=== PATIENT | female | born 1945 | race Caucasian/White ===

== ENCOUNTER 2019-01-12 13:03 | Emergency (ER) | payer MEDICARE, BC ==
[~2019-01-12] VITALS: Ht 154.9 cm; Wt 90.7 kg
[~2019-01-12 13:03] MED LIST: ASPIRIN EC81 MG PO; CALTRATE-600 W1 EAC1 PO; CENTRUM SILVER1 EACH PO; CO Q10200 MG PO; CYCLOBENZAPRINE 10 MG PO; CYMBALTA30 MG PO; ETODOLAC400 MG PO; GLUCOSAMINE CH1 EAC2 PO; I-CAPS AREDS S1 EACH PO; LEVOCETIRIZINE D5 MG PO; LYRICA PO; TROSPIUM PO; VITAMIN B-125000 MCG PO
[2019-01-12 16:22] LABS: ALBUMIN 3.4 g/dL (3.5-5.0); ALBUMIN/GLOBULIN RATIO 1.1 (0.8-2.0); CALCIUM 9.4 mg/dL (8.4-10.2); CREATININE, SERUM 1.06 mg/dL (0.57-1.11)
[2019-01-12 17:08] LABS: CLARITY,URINE CLEAR (CLEAR); COLOR,URINE YELLOW (YELLOW)
[2019-01-12 17:09] LABS: BILIRUBIN,URINE NEGATIVE (NEGATIVE); KETONES,URINE NEGATIVE (NEGATIVE); LEUKOCYTE ESTERASE ,URINE NEGATIVE (NEGATIVE); NITRITE,URINE NEGATIVE (NEGATIVE); PROTEIN,URINE DIPSTICK TRACE (NEGATIVE); URINE UROBILINOGEN 0.2 mg/dL (0.2 - 1)
[2019-01-12 17:21] LABS: WBC,URINE (MAN) 0-5 /HPF (0-5)
[2019-01-12 17:22] LABS: HYALINE CASTS 0-1 (0-1); MUCUS,URINE RARE (RARE)
[2019-01-12 17:36] LABS: BASOPHILS # (AUTO) 0.1 (0.0-0.1); BASOPHILS % 1.1 % (0.0-1.0); EOSINOPHILS # (AUTO) 0.4 (0.0-0.4); EOSINOPHILS % 5.2 % (0.0-6.0); HEMATOCRIT 38.3 % (34.2-44.1); HEMOGLOBIN 12.6 g/dL (12.0-16.0); LYMPHOCYTES # (AUTO) 1.8 (1.0-3.2); LYMPHOCYTES % 24.3 % (18.0-39.1); MEAN CORPUSCULAR HEMOGLOBIN 31.7 pg (28-32); MEAN CORPUSCULAR HGB CONC 32.9 g/dL (31-35); MEAN CORPUSCULAR VOLUME 96.5 fL (81-99); MONOCYTES # (AUTO) 0.7 (0.2-0.8); MONOCYTES % 9.7 % (4.4-11.3); NEUTROPHILS # (AUTO) 4.3 (2.1-6.9); NEUTROPHILS % 59.2 % (38.7-80.0); PLATELET COUNT 339 x10e3/uL (140-360); RED BLOOD COUNT 3.97 x10e6/uL (3.6-5.1); RED CELL DISTRIBUTION WIDTH 16.1 % (11.7-14.4)
[2019-01-12 17:52] LABS: INR 0.8; PROTHROMBIN TIME 11.9 seconds (11.9-14.5)
[2019-01-12 17:53] LABS: PARTIAL THROMBOPLASTIN TIME 26.3 seconds (23.8-35.5)
--- NOTE | 2019-01-12 19:15 | NUR ---
ENDORSED TO VANESSA VELOZ RN BY ROYAL
--- NOTE | 2019-01-12 19:31 | NUR ---
PT DECLINED BP, SHE SAYS IT GOT TOO TIGHT.
== END 2019-01-12 20:00 | disposition home or self-care (01) ==
LOC: ER 13:03
DX: N95.0 Postmenopausal bleeding (principal); E78.5 Hyperlipidemia, unspecified; Z96.652 Presence of left artificial knee joint
CPT/HCPCS: 36415; 80053; 81001; 85025; 85610; 85730; 99283

== ENCOUNTER → 2019-07-30 | Outpatient (CLI) | payer MEDICARE, BC ==
[~2019-07-30] MED LIST changes: +BYSTOLIC10 MG PO; +GLIMEPIRIDE4 MG PO; +LEVOTHYROXINE50 MCG PO; +LYRICA75 MG PO; +METFORMIN HCL500 MG PO; +NIFEDIPINE10 MG PO; +TOVIAZ4 MG PO; +VALACYCLOVIR500 MG PO
[2019-07-30 16:23] LABS: ALBUMIN 2.9 g/dL (3.5-5.0); ALBUMIN/GLOBULIN RATIO 0.7 (0.8-2.0); ANION GAP 16.4 mmol/L (8-16); CALCIUM 9.5 mg/dL (8.4-10.2); CREATININE, SERUM 0.94 mg/dL (0.57-1.11); POTASSIUM 4.4 mmol/L (3.5-5.1)
== END ==
LOC: LAB 15:44
PROVIDERS: ATTEND Internal Medicine
DX: N18.3 Chronic kidney disease, stage 3 (moderate) (principal)
CPT/HCPCS: 36415; 80053

== ENCOUNTER → 2019-08-06 | Outpatient (CLI) | payer MEDICARE, BC ==
[~2019-08-06] MED LIST changes: +ROPIVACAINE 246.25 MG, EPINEPHRINE HCL 1:1000 1ML 0.5 MG, CLONIDINE HCL 0.08 MG, KETORO... INJ ONE
== END ==
LOC: RAD 05:00 → EDSTATUS 08:00
PROVIDERS: ATTEND Specialist
DX: Z01.818 Encounter for other preprocedural examination (principal); M17.11 Unilateral primary osteoarthritis, right knee; Z53.8 Procedure and treatment not carried out for other reasons
CPT/HCPCS: 86850; 86900; 86920; 93005; J0171; J1885; J2795

== ENCOUNTER 2019-12-23 06:33 | Inpatient (IN) | payer MEDICARE, BC ==
[~2019-12-23] VITALS: Ht 154.9 cm; Wt 79.6 kg
[2019-12-23] VITALS (12 sets, daily range): BP systolic 109–177; BP diastolic 44–88
[~2019-12-23 06:33] MED LIST changes: +CO Q-10400 MG PO; +FISH OIL 1,2001 EACH PO; -ROPIVACAINE 246.25 MG, EPINEPHRINE HCL 1:1000 1ML 0.5 MG, CLONIDINE HCL 0.08 MG, KETORO... INJ ONE
[2019-12-23] MEDS ORDERED: INSULIN REGULAR, HUMAN 100 UNIT/1 ML 3ML VIAL ONE (07:36)
[2019-12-23] MEDS ORDERED: ONDANSETRON HCL INJ 2MG/ML 2ML 2 MG/ML VIAL IV PRN (11:15)
[2019-12-23] MEDS ORDERED: ACETAMINOPHEN 1000 MG/100 ML IV PRN (11:15)
[2019-12-23] MEDS: INSULIN REGULAR, HUMAN 100 UNIT/1 ML 3ML VIAL SQ SCH ×2 (12:25→17:18)
[2019-12-23] MEDS ORDERED: LIDOCAINE HCL 2% LOCAL INJ 5 ML SDV VIAL INJ ONE (12:43)
[2019-12-23] MEDS ORDERED: SEVOFLURANE INHAL SOLN 250 ML PEN BTL ONE (12:43)
[2019-12-23] MEDS ORDERED: CEFOXITIN SOD 1 GM VIAL ONE (12:43)
[2019-12-23] MEDS ORDERED: GLYCOPYRROLATE INJ 0.2 MG/ML VIAL ONE (12:43)
[2019-12-23] MEDS ORDERED: NEOSTIGMINE 1 MG/ML 10ML VIAL ONE (12:43)
[2019-12-23] MEDS ORDERED: ONDANSETRON HCL INJ 2MG/ML 2ML 2 MG/ML VIAL ONE (12:43)
[2019-12-23] MEDS ORDERED: DEXAMETHASONE SOD PHOS INJ 4 MG/ML VIAL ONE (12:43)
[2019-12-23] MEDS ORDERED: ROCURONIUM BROMIDE 10 MG/ML 5ML VIAL ONE (12:43)
[2019-12-23] MEDS ORDERED: ACETAMINOPHEN 1000 MG/100 ML IV ONE (12:43)
[2019-12-23] MEDS ORDERED: PROPOFOL IV EMULSION 10 MG/ML 20 ML VIAL ONE (12:43)
[2019-12-23] MEDS: PANTOPRAZOLE 40 MG 10ML VIAL IV SCH (13:10)
[2019-12-23] MEDS: SODIUM CHLORIDE 0.9% 1000ML 1,000 ML IV SCH ×2 (13:10→19:54)
[2019-12-23] MEDS: HYDROMORPHONE 1MG/1ML INJ IV PRN ×2 (13:10→19:54)
[2019-12-23] MEDS ORDERED: FENTANYL CITRATE/PF 100MCG/2 ML INJ ONE (13:12)
[2019-12-23] MEDS ORDERED: MORPHINE SULFATE INJ 10 MG/ML ONE (13:12)
[2019-12-23] MEDS: SODIUM CHLORIDE 0.9% 250ML IRRIG IR SCH ×4 (14:29→23:48)
[2019-12-23] MEDS: CEFOXITIN 1GM/ D5W 50ML 50 ML IV SCH (17:17)
--- NOTE | 2019-12-23 18:20 | NUR ---
Pt with sudden onset nausea and c/o headache. HR 114, B/P 110/87. Called and spoke with Dr Mary Sahu orders received. He has advised to call and notify cardiology. Addendum: 12/23/19 at 1840 by Miguel Akhtar RN Disregard previous note of nausea. Entered on wrong patient by mistake.
--- NOTE | 2019-12-23 18:20 | NUR ---
Pt with decreased urine output x2 hour. Dr Liu notified. Order for one time ns bolus. Will monitor.
--- NOTE | 2019-12-23 18:28 | Operative Report ---
DATE OF PROCEDURE: 12/23/2019 SURGEON: Aleksey Liu MD PREOPERATIVE DIAGNOSES: Carcinoma of the distal transverse colon, cholecystitis, and cholelithiasis. POSTOPERATIVE DIAGNOSES: Carcinoma of the distal transverse colon, cholecystitis, and cholelithiasis. OPERATIONS PERFORMED: Exploratory laparotomy, left colectomy, and cholecystectomy. GLASS FORMING ENGINEER: Tho Liu MD ANESTHESIA: General endotracheal. COMPLICATIONS: None. ESTIMATED BLOOD LOSS: 75 mL. DESCRIPTION OF PROCEDURE: With the patient lying in bed in the supine position, under good general endotracheal anesthesia, and the abdomen was prepped with Betadine solution and draped in the usual manner. An upper midline incision was made, it was carried down through the subcutaneous tissue and through the midline fascia. The midline fascia was very very thin from the patient having a very attenuated rectus sheath. Exploration of the intraabdominal cavity then revealed the presence of a palpable mass in the distal transverse colon. The rest of the abdominal exploration revealed a gallbladder with a contained some large stones in the neck, so we decided to go ahead and also proceed with a cholecystectomy during the procedure. The liver showed some fatty infiltration and some engorgement, likely secondary to the patient's obesity and some of the medications that she takes. At this point, we went ahead and mobilized the left colon off the lateral gutter and the splenic flexure, the colon was then slowly and carefully brought down. Similarly, the hepatic flexure on the right side was brought down and from the hepatocolic ligament. The lesser sac was then entered and the lesser omentum was then divided using the Ultrex device. After this was done, we had good mobilization of the colon to go ahead and proceed with the surgery. The proximal transverse colon was then divided with an application of the DREW-75 stapler and similarly the junction of the descending and sigmoid colon was then divided with an application of DREW-75 stapler. The mesentery of the colon was then slowly and carefully divided with the Ultrex device, with the larger vessels ligated with 0 silk. The specimen was removed without any difficulty and sent for pathological examination. Before doing the anastomosis, we decided to go ahead and proceed with a cholecystectomy. The gallbladder was full of adhesions to the duodenum and this was slowly and carefully taken down. The neck of the gallbladder was then identified in the peritoneum overlying the neck of the gallbladder was opened. The cystic duct was then circumferentially dissected away from the common duct and a 2-0 silk tie was placed around the cystic artery, it was then identified and ligated, but not divided. The gallbladder was then slowly and carefully taken off the liver bed using the cautery scissors and hemostasis was ascertained. At the neck of the gallbladder, the cystic artery that had been previously tied, it was then identified and divided, and then the cystic duct was ligated with the previously placed 2-0 silk tie and also divided, and gallbladder was sent for pathological examination. Hemostasis was then ascertained and we then went ahead and proceeded to do the anastomosis of the colon. The proximal transverse colon was then brought without any tension over to the proximal sigmoid colon. An anastomosis was performed with another application of the DREW-75 stapler. The remaining opening was closed with a TA-60 stapler. Gloves and instruments were then changed. The anastomosis was then reinforced with interrupted sutures of 3-0 silk and the mesenteric rent was closed with a running suture of 2-0 Vicryl. The abdomen was then copiously irrigated. Hemostasis was ascertained. All the excess fluid was aspirated. The abdomen was then closed because the attenuation of the rectus sheath, there was only one layer present and so the midline fascia was closed with a running suture of #1 Vicryl reinforced with interrupted [id number]-hczpw of 0 Ethibond. This gave us a satisfactory closure without any tension. The hemostasis of the subcutaneous tissue was performed and the skin was then closed with clips. A dressing was applied. The sponge, lap, and needle count was correct. The patient tolerated the procedure well and returned to the recovery room in stable condition. MD SHAGUFTA Reddy/JOANN /[id number]
[2019-12-23] MEDS ORDERED: SODIUM CHLORIDE 0.9% 500ML 300 ML IV ONE (18:30)
[2019-12-24] VITALS (24 sets, daily range): BP systolic 121–165; BP diastolic 47–73
[2019-12-24] MEDS: CEFOXITIN 1GM/ D5W 50ML 50 ML IV SCH (00:08)
[2019-12-24] MEDS: INSULIN REGULAR, HUMAN 100 UNIT/1 ML 3ML VIAL SQ SCH ×5 (00:12→23:48)
[2019-12-24] MEDS: SODIUM CHLORIDE 0.9% 250ML IRRIG IR SCH ×6 (04:14→23:47)
[2019-12-24] MEDS: SODIUM CHLORIDE 0.9% 1000ML 1,000 ML IV SCH ×3 (05:01→21:10)
[2019-12-24 05:13] LABS: BASOPHILS % 0.1 % (0.0-1.0); EOSINOPHILS % 0.1 % (0.0-6.0); HEMATOCRIT 31.6 % (34.2-44.1); HEMOGLOBIN 9.7 g/dL (12.0-16.0); LYMPHOCYTES # (AUTO) 1.4 (1.0-3.2); LYMPHOCYTES % 10.3 % (18.0-39.1); MEAN CORPUSCULAR HEMOGLOBIN 29.8 pg (28-32); MEAN CORPUSCULAR HGB CONC 30.7 g/dL (31-35); MEAN CORPUSCULAR VOLUME 97.2 fL (81-99); MONOCYTES # (AUTO) 1.3 (0.2-0.8); MONOCYTES % 9.4 % (4.4-11.3); NEUTROPHILS % 79.3 % (38.7-80.0); PLATELET COUNT 314 x10e3/uL (140-360); RED BLOOD COUNT 3.25 x10e6/uL (3.6-5.1); RED CELL DISTRIBUTION WIDTH 22.5 % (11.7-14.4)
[2019-12-24 05:32] LABS: ANION GAP 17.2 mmol/L (8-16); CALCIUM 8.3 mg/dL (8.4-10.2); CREATININE, SERUM 1.2 mg/dL (0.57-1.11); POTASSIUM 5.2 mmol/L (3.5-5.1)
[2019-12-24] MEDS: HYDROMORPHONE 1MG/1ML INJ IV PRN ×3 (05:33→21:09)
[2019-12-24] MEDS: NEBIVOLOL 10 MG TAB PO SCH (08:17)
[2019-12-24] MEDS ORDERED: SODIUM CHLORIDE 0.9% 1000ML 250 ML IV ONE (10:45)
[2019-12-24] MEDS: PANTOPRAZOLE 40 MG 10ML VIAL IV SCH (11:26)
[2019-12-24] MEDS ORDERED: SODIUM CHLORIDE 0.9% 1000ML 300 ML IV ONE (12:00)
--- NOTE | 2019-12-24 12:00 | NUR ---
Low urine output. Pt remains with urine output of 20ml/hr. Spoke with Dr Liu and reported that a 250cc ns bolus has already been given. Dr Liu orders an additional one time bolus of 300cc ns now. He states he is not too concerned with the low output and he will come see the pt and give further orders at that time.
--- NOTE | 2019-12-24 12:18 | NUR ---
Pt is confused, crying, upset. She has been a little confused all morning. Notified Dr Allen. He ordered Dr López consult.
--- NOTE | 2019-12-24 12:22 | NUR ---
Nutrition Screen Note RD Recommendation for Physician: - When medically feasible ADAT to goal of 1600 ADA, GI Soft Plan of Care: RD following, monitoring for tolerance and adequacy Nutrition reason for involvement: Nutrition Risk Trigger- MST 6 Primary Diagnose(s): adenocarcinoma colon PMH: No H&P available in chart Ht: 61 in Wt: 180.13 lb BMI: 34.0 kg/m2 IBW: [address] Assessment: (12/24) 74 YOF admitted for adenocarcinoma of the colon, pt POD 1 for surgery yesterday. Pt seen today per MST screen. No H&P available in chart yet. Pt reviewed during am rounds. Pt awake and alert at time of visit and wanting NGT removed, NGT to output currently- noted 400 ml of dark brown output. Pt denies any N/V or abdominal pain. 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 He denies any wt loss, reports UBW of 185# within the past 3-6 mo. Chart reviewed. Labs and meds reviewed, elevated BG trend noted- pt on insulin. Pt and with no questions or concerns at time of visit. Will continue to monitor. Current Diet: NPO Malnutrition Evaluation (12/24/2019) The patient does not meet criteria for a specified degree of malnutrition at this time. Will re-evaluate at follow-up as appropriate. Diet Education Needs Assessment: Diet education not indicated at this time, pt NPO. Diet tolerance: pending Nutrition Care Level: low Signed: Leslye Jeffers RD, LD, [facility]
--- NOTE | 2019-12-24 12:25 | NUR ---
Dr López's office notified of new consult.
--- NOTE | 2019-12-24 12:37 | Consultation ---
DATE OF CONSULTATION: 12/24/2019 REASON FOR CONSULTATION: Postop medical management. HISTORY OF PRESENT ILLNESS: The patient is a 74-year-old lady, recently found to have colon cancer on colonoscopy where she is now status post resection who postoperatively is complaining of some abdominal pain. REVIEW OF SYSTEMS: Denies any chest pain, shortness of breath, nausea, or vomiting. PAST MEDICAL HISTORY: 1. Diabetes. 2. Reflux disease. 3. Hypertension. MEDICATIONS: See MAR. ALLERGIES: CODEINE AND . SOCIAL HISTORY: . Lives at home. Nonsmoker and nondrinker. FAMILY HISTORY: Hypertension. PHYSICAL EXAMINATION: VITAL SIGNS: Temperature 98.3, pulse 86, blood pressure 121/64, and saturations 92%. GENERAL: She is in no apparent distress, lying in bed with an NG tube intact. NECK: Supple. LUNGS: Clear to auscultation bilaterally. CARDIOVASCULAR: Regular rate and rhythm. LUNGS: Clear to auscultation bilaterally. ABDOMEN: Soft. No bowel sounds. EXTREMITIES: No clubbing or cyanosis. NEUROLOGIC: Moves all extremities x4. ASSESSMENT AND PLAN: 1. Abdominal pain. We will continue with pain control. 2. Anemia. Check a CBC. 3. Status post colon cancer removal. Continue with postoperative care per Dr. Liu. 4. Hypertension. We will continue to monitor. 5. Diabetes. We will continue to monitor and use sliding scale as necessary. 6. Reflux disease. Continue with her proton pump inhibitor. Please see hospital chart for full details. MD AZALIA Owens/JOANN /[id number]
--- NOTE | 2019-12-24 15:19 | NUR ---
WOUND CARE CONSULT 74 YO FEMALE HX OF COLON CA, ABDOMINAL SURG , DRY PATCHES TO BUTTOCKS AREA CHIDI 13 ON MODERATE PUP STATUS AND INTERVENTIONS AND ALTERNATING PRESSURE MATTRESS LABS: WBC- 13.88, HGB- 9.7, GLUCOSE -192 SKIN ASSESSMENT COMPLETE PATIENT PRESENTS WITH PARTIAL THICKNESS OPEN AREA TO BILATERAL BUTTOCKS 1CMX .5CM X .1CM RELATED TO DRIED RASH AREA COLLECTING MORE MOISTURE RECOMMENDATIONS: NURSING TO CONTINUE TO MAINTAIN MODERATE PUP STATUS AND INTERVENTIONS AND ALTERNATING MATTRESS NURSING TO CONTINUE TO ASSIST PATIENT OUT OF BED FOR MEALS AND MUCH TOLERATED NURSING TO CLEAN BUTTOCKS PARTIAL THICKNESS AREA DAILY APPLY VENELEX OINTMENT AND COVER WITH ALLEVYN FOAM DRESSING Addendum: 12/24/19 at 1532 by Radhames Mercedes RN Amended: Links added.
[2019-12-24] MEDS ORDERED: QUETIAPINE FUMARATE 25 MG TAB PO PRN (17:15)
[2019-12-24] MEDS ORDERED: HALOPERIDOL LACTATE 5 MG/ML VIAL IM PRN (17:15)
--- NOTE | 2019-12-24 19:15 | NUR ---
Bedside report received from Anat Alberto RN. Care plan reviewed, no family present. Pt reports no abd pain at this time, pt does report dry and tenderness to her throat and was given mouth moisture swabs to aid.
--- NOTE | 2019-12-24 20:45 | NUR ---
Bedside report given to Eulalia Hernández RN. Care plan reviewed, no family present.
--- NOTE | 2019-12-24 23:59 | Consultation ---
DATE OF CONSULTATION: 12/24/2019 Psychiatric Consultation REASON FOR CONSULTATION: To evaluate the patient's mood. HISTORY OF PRESENT ILLNESS: The patient is a 74-year-old female, admitted to the hospital for adenocarcinoma of the colon. Psychiatric consultation is called to evaluate the patient's mood and psychosis. As per medical record, the patient has history of diabetes, reflux disease, and hypertension. Upon evaluation today, the patient is found to be in the room with the sister and . She is oriented to situation. She reports feeling anxious, but denies feeling hopeless or helpless. She denies feeling depressed. She denies any hallucination. She denies any suicidal or homicidal ideation. She reports having issue with appetite due to her surgery. She reports her sleeping is fair due to pain. She is not agitated or combative at this time. As per nursing staff, the patient has been intermittently confused, especially after Whipple surgery. PAST PSYCHIATRIC HISTORY: The patient denies past psychiatric history. She denies past suicide attempts. She denies alcohol or drug use. FAMILY HISTORY: The patient reports history of depression. SOCIAL HISTORY: The patient lives with her . MENTAL STATUS EXAM: The patient is a female. She is alert, awake, and oriented to situation. Her mood is anxious. Affect congruent with mood. Psychomotor state is passive. She denies any suicidal or homicidal ideation. Denies any hallucination. Thought process is concrete. No delusion elicited. Insight and judgment are fair. Memory appears grossly intact. CURRENT MEDICATIONS: 1. Sodium chloride. 2. Hydromorphone. 3. Pantoprazole. 4. Nebivolol. 5. Insulin. 6. Ondansetron. CURRENT LABS: WBC 13.88, RBC 3.25, hemoglobin 9.7, hematocrit 31.6, platelets 314. Sodium 139, potassium 5.2, chloride 106, CO2 of 21, BUN 13, creatinine 1.2. ASSESSMENT: 1. Adjustment disorder mixed mood. 2. Unspecified psychosis. PLAN: 1. Add Seroquel 25 mg p.o. q.6 hours as needed. 2. Haldol 2 mg IM q.6 hours as needed. 3. Monitor for agitation. 4. Supportive therapy. Thank you for this consultation. Dictated by Clara Diamond PA-C MD SAVANNAH Estrada/MANJEETL /[id number]
[2019-12-25] VITALS (23 sets, daily range): BP systolic 115–172; BP diastolic 45–73
[2019-12-25] MEDS: HYDROMORPHONE 1MG/1ML INJ IV PRN ×5 (02:48→16:15)
[2019-12-25] MEDS: SODIUM CHLORIDE 0.9% 250ML IRRIG IR SCH ×6 (03:15→23:45)
[2019-12-25 04:57] LABS: BASOPHILS # (AUTO) 0.1 (0.0-0.1); BASOPHILS % 0.4 % (0.0-1.0); EOSINOPHILS # (AUTO) 0.1 (0.0-0.4); EOSINOPHILS % 0.9 % (0.0-6.0); HEMATOCRIT 30.4 % (34.2-44.1); HEMOGLOBIN 9.2 g/dL (12.0-16.0); LYMPHOCYTES # (AUTO) 2.7 (1.0-3.2); LYMPHOCYTES % 20.4 % (18.0-39.1); MEAN CORPUSCULAR HEMOGLOBIN 29.9 pg (28-32); MEAN CORPUSCULAR HGB CONC 30.3 g/dL (31-35); MEAN CORPUSCULAR VOLUME 98.7 fL (81-99); MONOCYTES # (AUTO) 1.5 (0.2-0.8); MONOCYTES % 11.3 % (4.4-11.3); NEUTROPHILS # (AUTO) 8.9 (2.1-6.9); NEUTROPHILS % 66.5 % (38.7-80.0); PLATELET COUNT 340 x10e3/uL (140-360); RED BLOOD COUNT 3.08 x10e6/uL (3.6-5.1)
[2019-12-25 05:20] LABS: ANION GAP 13.3 mmol/L (8-16); BLOOD UREA NITROGEN 13 mg/dL (7-26); BUN/CREATININE RATIO 15 (6-25); CALCIUM 8.2 mg/dL (8.4-10.2); CARBON DIOXIDE 22 mmol/L (22-29); CHLORIDE 111 mmol/L (98-107); CREATININE, SERUM 0.88 mg/dL (0.57-1.11); EST GLOMERULAR FILTRATION RATE > 60 ML/MIN (60-); GLUCOSE 117 mg/dL (74-118); POTASSIUM 4.3 mmol/L (3.5-5.1); SODIUM 142 mmol/L (136-145)
[2019-12-25 05:36] LABS: ALANINE AMINOTRANSFERASE 26 IU/L (0-55); ALBUMIN 2.5 g/dL (3.5-5.0); ALBUMIN/GLOBULIN RATIO 0.8 (0.8-2.0); ALKALINE PHOSPHATASE 45 IU/L (40-150); MAGNESIUM 2.1 MG/DL (1.3-2.1)
[2019-12-25] MEDS: INSULIN REGULAR, HUMAN 100 UNIT/1 ML 3ML VIAL SQ SCH ×3 (05:37→17:53)
[2019-12-25 06:28] LABS: EOSINOPHILS % (MANUAL) 2 % (0-7); LYMPHOCYTES % (MANUAL) 19 % (19-48); MONOCYTES % (MANUAL) 10 % (3.4-9.0); NEUTROPHILS % (MANUAL) 69 % (40-74); PLATELET ESTIMATE ADEQUATE; PLATELET MORPHOLOGY COMMENT NORMAL; RBC MORPHOLOGY COMMENT NORMAL
[2019-12-25] MEDS: SODIUM CHLORIDE 0.9% 1000ML 1,000 ML IV SCH ×2 (09:06→23:00)
[2019-12-25] MEDS: BALSAM PERU/CASTOR OIL 60 GM OINT...G. TP SCH (09:06)
[2019-12-25] MEDS: NEBIVOLOL 10 MG TAB PO SCH (09:06)
[2019-12-25] MEDS: PANTOPRAZOLE 40 MG 10ML VIAL IV SCH (09:07)
--- NOTE | 2019-12-25 09:35 | NUR ---
PATIENT ASSISTED OUT OF BED TO CHAIR REQUIRING 1 PERSON ASSIST. ALL LINEN CHANGED
--- NOTE | 2019-12-25 15:55 | NUR ---
RE-TAPED LEFT FA PIV. PREVIOUS LEAKING
[2019-12-25] MEDS: BISACODYL 10 MG SUPP PR SCH (20:45)
[2019-12-26] VITALS (30 sets, daily range): BP systolic 129–195; BP diastolic 50–95
[2019-12-26] MEDS: HYDROMORPHONE 1MG/1ML INJ IV PRN ×2 (00:15→04:07)
[2019-12-26] MEDS: HYDRALAZINE HCL 20 MG/ML VIAL IV PRN ×2 (00:15→11:17)
[2019-12-26] MEDS: TRAZODONE HCL 50 MG TAB PO PRN (00:25)
[2019-12-26] MEDS: SODIUM CHLORIDE 0.9% 250ML IRRIG IR SCH ×6 (03:30→23:30)
[2019-12-26 05:13] LABS: BASOPHILS # (AUTO) 0.1 (0.0-0.1); BASOPHILS % 0.7 % (0.0-1.0); EOSINOPHILS # (AUTO) 0.5 (0.0-0.4); EOSINOPHILS % 3.6 % (0.0-6.0); HEMATOCRIT 30.9 % (34.2-44.1); HEMOGLOBIN 9.1 g/dL (12.0-16.0); LYMPHOCYTES # (AUTO) 2.1 (1.0-3.2); LYMPHOCYTES % 15.2 % (18.0-39.1); MEAN CORPUSCULAR HEMOGLOBIN 29.6 pg (28-32); MEAN CORPUSCULAR HGB CONC 29.4 g/dL (31-35); MEAN CORPUSCULAR VOLUME 100.7 fL (81-99); MONOCYTES # (AUTO) 1.3 (0.2-0.8); MONOCYTES % 9.8 % (4.4-11.3); NEUTROPHILS # (AUTO) 9.5 (2.1-6.9); PLATELET COUNT 335 x10e3/uL (140-360); RED BLOOD COUNT 3.07 x10e6/uL (3.6-5.1); RED CELL DISTRIBUTION WIDTH 22.5 % (11.7-14.4)
[2019-12-26 05:28] LABS: BLOOD UREA NITROGEN 12 mg/dL (7-26); BUN/CREATININE RATIO 15 (6-25); CALCIUM 8.4 mg/dL (8.4-10.2); CARBON DIOXIDE 21 mmol/L (22-29); CHLORIDE 110 mmol/L (98-107); CREATININE, SERUM 0.78 mg/dL (0.57-1.11); EST GLOMERULAR FILTRATION RATE > 60 ML/MIN (60-); GLUCOSE 145 mg/dL (74-118); SODIUM 141 mmol/L (136-145)
[2019-12-26] MEDS: INSULIN REGULAR, HUMAN 100 UNIT/1 ML 3ML VIAL SQ SCH ×4 (05:52→17:53)
[2019-12-26] MEDS: BISACODYL 10 MG SUPP PR SCH ×2 (08:20→22:20)
[2019-12-26] MEDS: NEBIVOLOL 10 MG TAB PO SCH (08:26)
[2019-12-26] MEDS: SODIUM CHLORIDE 0.9% 1000ML 1,000 ML IV SCH ×2 (08:26→19:01)
[2019-12-26] MEDS: BALSAM PERU/CASTOR OIL 60 GM OINT...G. TP SCH (08:26)
--- NOTE | 2019-12-26 09:24 | NUR ---
WENT TO SPEAK WITH IN ROOM, NURSE STATES HE IS NOT HERE YET, WILL RETURN TO ROOM AT A LATER TIME TO CATCH HIM, IF UNABLE WILL CALL HIM AT CONTACT TO DISCUSS SNF ORDER.
--- NOTE | 2019-12-26 09:36 | NUR ---
MAXIMUM ASSISTANCE REQUIRED FOR GETTING PATIENT OUT OF BED TO CHAIR. PATIENT MAKES NO EFFORT TO HELP
[2019-12-26] MEDS: PANTOPRAZOLE 40 MG 10ML VIAL IV SCH (11:06)
--- NOTE | 2019-12-26 18:19 | NUR ---
unable to get piv access since 1200. iv fluid on hold. multiple attempts x nurses. order for picc line placement. consent signed by at bedside. awaiting picc line nurse.
--- NOTE | 2019-12-26 20:48 | Diagnostic Imaging Report ---
Examination: Single AP view of the chest. COMPARISON: October 18, 2019 INDICATION: Line placement DISCUSSION: Lines/tubes: Right PICC line with tip overlying the confluence of the right brachiocephalic and SVC. Enteric tube with the distal tip not visualized Lungs: Pulmonary venous congestion with lower lung atelectasis. Pleura: There is no pleural effusion or pneumothorax. Heart and mediastinum: The heart and the mediastinum are unremarkable. Bones and soft tissues: No acute bony abnormalities. IMPRESSION: 1. Right PICC line and an enteric tube as above Signed by: Dr. Vasu Pack M.D. on 12/26/2019 8:45 PM
[2019-12-27] VITALS (19 sets, daily range): BP systolic 120–177; BP diastolic 48–71
[2019-12-27] MEDS: TRAZODONE HCL 50 MG TAB PO PRN
[2019-12-27] MEDS: SODIUM CHLORIDE 0.9% 250ML IRRIG IR SCH ×3 (03:30→11:00)
[2019-12-27] MEDS: HYDRALAZINE HCL 20 MG/ML VIAL IV PRN ×3 (04:40→17:35)
[2019-12-27 05:19] LABS: BASOPHILS # (AUTO) 0.1 (0.0-0.1); BASOPHILS % 0.6 % (0.0-1.0); EOSINOPHILS # (AUTO) 0.5 (0.0-0.4); EOSINOPHILS % 4.6 % (0.0-6.0); HEMATOCRIT 28.6 % (34.2-44.1); HEMOGLOBIN 8.9 g/dL (12.0-16.0); LYMPHOCYTES # (AUTO) 1.6 (1.0-3.2); LYMPHOCYTES % 15.7 % (18.0-39.1); MEAN CORPUSCULAR HEMOGLOBIN 30.3 pg (28-32); MEAN CORPUSCULAR HGB CONC 31.1 g/dL (31-35); MEAN CORPUSCULAR VOLUME 97.3 fL (81-99); MONOCYTES # (AUTO) 1.1 (0.2-0.8); MONOCYTES % 10.7 % (4.4-11.3); NEUTROPHILS # (AUTO) 6.7 (2.1-6.9); NEUTROPHILS % 67.7 % (38.7-80.0); PLATELET COUNT 280 x10e3/uL (140-360); RED BLOOD COUNT 2.94 x10e6/uL (3.6-5.1); RED CELL DISTRIBUTION WIDTH 21.9 % (11.7-14.4)
[2019-12-27 05:39] LABS: ANION GAP 14.5 mmol/L (8-16); BLOOD UREA NITROGEN 10 mg/dL (7-26); BUN/CREATININE RATIO 14 (6-25); CALCIUM 8.4 mg/dL (8.4-10.2); CARBON DIOXIDE 23 mmol/L (22-29); CHLORIDE 111 mmol/L (98-107); EST GLOMERULAR FILTRATION RATE > 60 ML/MIN (60-); GLUCOSE 131 mg/dL (74-118); MAGNESIUM 1.6 MG/DL (1.3-2.1); POTASSIUM 3.5 mmol/L (3.5-5.1); SODIUM 145 mmol/L (136-145)
[2019-12-27] MEDS: INSULIN REGULAR, HUMAN 100 UNIT/1 ML 3ML VIAL SQ SCH ×5 (06:00→21:00)
[2019-12-27] MEDS: SODIUM CHLORIDE 0.9% 1000ML 1,000 ML IV SCH ×2 (06:02→18:37)
--- NOTE | 2019-12-27 06:43 | Diagnostic Imaging Report ---
Abdomen/KUB INDICATION: ^Constipation ^20191227 ^0520 ^Y COMPARISON: None. FINDINGS: Portable, supine image obtained at 0520 hours. Medical Devices: Enteric tube terminates in the proximal stomach. Midline abdominal wall lito are present. There is a right hip prosthesis in appropriate position. Bowel: Unremarkable bowel gas pattern. No dilated bowel loops. No significant stool burden. Free air: None Abdominal calcifications: None over the renal shadows or along the expected course of the ureters Organomegaly: None Lung bases: Bibasilar atelectasis Bones: Levoscoliosis and superimposed degenerative changes IMPRESSION: Enteric tube in the proximal stomach. Unremarkable bowel gas pattern. No significant stool burden. Signed by: Dr. Chandler Truong MD on 12/27/2019 6:40 AM
[2019-12-27] MEDS: BALSAM PERU/CASTOR OIL 60 GM OINT...G. TP SCH (08:30)
[2019-12-27] MEDS: NEBIVOLOL 10 MG TAB PO SCH (08:30)
[2019-12-27] MEDS: BISACODYL 10 MG SUPP PR SCH (08:30)
[2019-12-27] MEDS: PANTOPRAZOLE 40 MG 10ML VIAL IV SCH (11:56)
--- NOTE | 2019-12-27 18:19 | NUR ---
PT TO THE FLOOR FROM ICU. VITALS WNL. PT DENIES NEEDS AT THIS TIME.
--- NOTE | 2019-12-27 19:04 | NUR ---
WALKING ROUNDS PERFORMED, RECEIVED PT LAYING SEMI FOWLERS IN BED, AAOX3, RR EVEN AND NON-LABORED, O2 BY NC AT 2L. NO S/SX OF DISTRESS NOTED. ANTERIOR INCISION CDI, OPEN TO AIR. DIAPER IN PLACE. LEFT PT LAYING SEMI FOWLERS IN BED, BED IN LOW LOCKED POSITION, SIDE RAILS UPX2, CALL LIGHT AND PHONE WITHIN REACH.
[2019-12-27] MEDS ORDERED: DEXTROSE 50% SYRINGE 50 ML IV PRN (19:45)
--- NOTE | 2019-12-27 22:00 | NUR ---
APPLIED ALTERNATING AIR PUMP TO MATTRESS FOR PUP.
[2019-12-28] VITALS (8 sets, daily range): BP systolic 162–226; BP diastolic 61–85
[2019-12-28] MEDS: TRAZODONE HCL 50 MG TAB PO PRN ×2 (00:23→23:10)
[2019-12-28] MEDS: HYDRALAZINE HCL 20 MG/ML VIAL IV PRN ×3 (04:45→22:48)
--- NOTE | 2019-12-28 05:07 | NUR ---
MD NEVILLE MADE AWARE OF PATIENTS ELEVATED BP AND ADMIN OF HYDRALAZINE
[2019-12-28 06:09] LABS: BASOPHILS # (AUTO) 0.1 (0.0-0.1); BASOPHILS % 0.8 % (0.0-1.0); EOSINOPHILS # (AUTO) 0.5 (0.0-0.4); EOSINOPHILS % 6.2 % (0.0-6.0); HEMATOCRIT 29.2 % (34.2-44.1); HEMOGLOBIN 9.1 g/dL (12.0-16.0); LYMPHOCYTES # (AUTO) 1.3 (1.0-3.2); LYMPHOCYTES % 15.2 % (18.0-39.1); MEAN CORPUSCULAR HEMOGLOBIN 30.2 pg (28-32); MEAN CORPUSCULAR HGB CONC 31.2 g/dL (31-35); NEUTROPHILS # (AUTO) 5.4 (2.1-6.9); PLATELET COUNT 291 x10e3/uL (140-360); RED BLOOD COUNT 3.01 x10e6/uL (3.6-5.1); RED CELL DISTRIBUTION WIDTH 21.6 % (11.7-14.4)
[2019-12-28 06:28] LABS: ANION GAP 15.3 mmol/L (8-16); BLOOD UREA NITROGEN 12 mg/dL (7-26); BUN/CREATININE RATIO 17 (6-25); CALCIUM 8.5 mg/dL (8.4-10.2); CARBON DIOXIDE 22 mmol/L (22-29); CHLORIDE 109 mmol/L (98-107); CREATININE, SERUM 0.69 mg/dL (0.57-1.11); EST GLOMERULAR FILTRATION RATE > 60 ML/MIN (60-); GLUCOSE 127 mg/dL (74-118); POTASSIUM 3.3 mmol/L (3.5-5.1); SODIUM 143 mmol/L (136-145)
[2019-12-28] MEDS: INSULIN REGULAR, HUMAN 100 UNIT/1 ML 3ML VIAL SQ SCH ×4 (07:30→21:00)
--- NOTE | 2019-12-28 07:31 | NUR ---
Pt received in bed with eyes open. aox4 and able to verbalize needs. Denies any pain at this time. 0 s/s of acute distress noted.
[2019-12-28] MEDS: NEBIVOLOL 10 MG TAB PO SCH (08:40)
[2019-12-28] MEDS: BALSAM PERU/CASTOR OIL 60 GM OINT...G. TP SCH (09:00)
[2019-12-28] MEDS: PANTOPRAZOLE 40 MG 10ML VIAL IV SCH (12:02)
--- NOTE | 2019-12-28 15:34 | Progress Note ---
DATE: 12/25/2019 SUBJECTIVE: The patient evaluated and events noted. Dictation was made on the , but for some reason it did not show up on the medical record. This is second attempt to dictate the patient for that day of service, which is on December 25, 2019. The patient is in the room. She is calm. She denies any hallucination. She is doing much better and no agitation. reports that she is not sleeping much. She denies any side effects to medication. She is not agitated. ASSESSMENT: 1. Adjustment disorder with mixed mood. 2. Unspecified psychosis. PLAN: 1. Add trazodone 50 mg p.o. at bedtime. 2. Continue with Seroquel and Haldol p.r.n. 3. Supportive therapy and monitor for agitation. Dictated by Clara Diamond PA-C Zee López MD QTV/MANJEETL /[id number]
[2019-12-28] MEDS: AMLODIPINE BESYLATE 5 MG TAB PO SCH (15:41)
--- NOTE | 2019-12-28 16:49 | Progress Note ---
DATE: 12/27/2019 SUBJECTIVE: The patient is in the ICU. She is doing well. claimed that the patient was agitated yesterday and was confused, thinking people can her down. The patient is calm at this time. She received trazodone last night. She has not received any p.r.n. Seroquel. The patient nods her head. She is not combative. Discussed with family members and nursing staff. Reports the patient is doing fairly okay. ASSESSMENT: 1. Adjustment disorder mixed mood. 2. Unspecified psychosis. PLAN: 1. Continue p.r.n. Seroquel. 2. Continue with trazodone 50 mg p.o. at bedtime. 3. Continue Haldol p.r.n. IM. 4. Monitor for mood. 5. Supportive therapy. Dictated by Clara Diamond PA-C Zee López MD QTV/MODL /[id number]
[2019-12-28] MEDS: BISACODYL 10 MG SUPP PR SCH (22:23)
[2019-12-29] VITALS (9 sets, daily range): BP systolic 154–200; BP diastolic 59–90
[2019-12-29] MEDS: HYDRALAZINE HCL 20 MG/ML VIAL IV PRN ×3 (05:10→21:30)
[2019-12-29 06:32] LABS: BASOPHILS # (AUTO) 0.1 (0.0-0.1); BASOPHILS % 0.8 % (0.0-1.0); EOSINOPHILS # (AUTO) 0.4 (0.0-0.4); EOSINOPHILS % 4.9 % (0.0-6.0); HEMATOCRIT 28.5 % (34.2-44.1); HEMOGLOBIN 8.8 g/dL (12.0-16.0); LYMPHOCYTES # (AUTO) 1.1 (1.0-3.2); LYMPHOCYTES % 12.8 % (18.0-39.1); MEAN CORPUSCULAR HEMOGLOBIN 29.4 pg (28-32); MEAN CORPUSCULAR HGB CONC 30.9 g/dL (31-35); MEAN CORPUSCULAR VOLUME 95.3 fL (81-99); MONOCYTES % 11.3 % (4.4-11.3); NEUTROPHILS # (AUTO) 6.1 (2.1-6.9); NEUTROPHILS % 69.5 % (38.7-80.0); PLATELET COUNT 291 x10e3/uL (140-360); RED BLOOD COUNT 2.99 x10e6/uL (3.6-5.1); RED CELL DISTRIBUTION WIDTH 21.4 % (11.7-14.4)
[2019-12-29 07:07] LABS: ANION GAP 14.2 mmol/L (8-16); CALCIUM 8.5 mg/dL (8.4-10.2); CARBON DIOXIDE 21 mmol/L (22-29); CHLORIDE 108 mmol/L (98-107); CREATININE, SERUM 0.66 mg/dL (0.57-1.11); EST GLOMERULAR FILTRATION RATE > 60 ML/MIN (60-); GLUCOSE 154 mg/dL (74-118); POTASSIUM 3.2 mmol/L (3.5-5.1); SODIUM 140 mmol/L (136-145)
[2019-12-29] MEDS: INSULIN REGULAR, HUMAN 100 UNIT/1 ML 3ML VIAL SQ SCH ×4 (07:30→21:00)
[2019-12-29 07:31] LABS: BLOOD UREA NITROGEN 12 mg/dL (7-26); BUN/CREATININE RATIO 17 (6-25)
--- NOTE | 2019-12-29 07:32 | NUR ---
Pt received in bed. Aox4 and able to verbalize needs. Denies any pain at this time.
[2019-12-29] MEDS: BISACODYL 10 MG SUPP PR SCH (09:09)
[2019-12-29] MEDS: AMLODIPINE BESYLATE 5 MG TAB PO SCH (09:10)
[2019-12-29] MEDS: BALSAM PERU/CASTOR OIL 60 GM OINT...G. TP SCH (09:10)
[2019-12-29] MEDS: NEBIVOLOL 10 MG TAB PO SCH (09:10)
[2019-12-29] MEDS: PANTOPRAZOLE 40 MG 10ML VIAL IV SCH (11:38)
--- NOTE | 2019-12-29 13:58 | Progress Note ---
DATE: 12/29/2019 SUBJECTIVE: The patient did well overnight. No new issues. She is no longer confused. She states she is doing very well with minimal abdominal pain. OBJECTIVE: VITAL SIGNS: Temperature 98.0, pulse 79, blood pressure 162/61, sats 96%. GENERAL: No apparent distress, lying in bed. CARDIOVASCULAR: Regular rate and rhythm. LUNGS: Clear to auscultation bilaterally. ABDOMEN: Soft, good bowel sounds. Nondistended. No peritoneal signs. EXTREMITIES: No clubbing or cyanosis. NEUROLOGIC: Nonfocal. ASSESSMENT AND PLAN: 1. Hypertension. Continue with current care and monitoring. 2. Diabetes. Continue to monitor. 3. Anemia. Continue to monitor p.r.n. 4. Hypokalemia has been replaced. 5. Status post hemicolectomy for colon cancer. Continue with postoperative care per Surgery. Please see hospital chart for full details. MD AZALIA Owens/JOANN /[id number]
--- NOTE | 2019-12-29 15:05 | NUR ---
Visit made by the Spiritual Care Department Pastoral Visitor, Derrick Styles. PV provided pastoral presence, hospitality, and supportive listening. Pastoral Visitor informed pt/family of the scope of Fire Watchman Services and availability. MARJAN ROA Finance Effectiveness Manager Spiritual Care Department O: [phone] Pager: [phone] ([phone] number calling from)
--- NOTE | 2019-12-29 16:00 | NUR ---
Notified Dr. Allen that pt BP is 200/98. Received orders to give Norvasc 5mg PO X1 dose now.
[2019-12-29] MEDS ORDERED: AMLODIPINE BESYLATE 5 MG TAB PO ONE (16:30)
[2019-12-29] MEDS ORDERED: POTASSIUM CHLORIDE 20 MEQ TAB CR PO ONE (16:30)
--- NOTE | 2019-12-29 18:58 | NUR ---
WALKING ROUNDS PERFORMED, RECEIVED PT LAYING SEMI FOWLERS IN BED, AAOX3, RR EVEN AND NON-LABORED, ON ROOM AIR. NO S/SX OF DISTRESS NOTED. ANTERIOR INCISION CDI, OPEN TO AIR. DIAPER IN PLACE. LEFT PT LAYING SEMI FOWLERS IN BED, BED IN LOW LOCKED POSITION, SIDE RAILS UPX2, CALL LIGHT AND PHONE WITHIN REACH.
[2019-12-30] VITALS (8 sets, daily range): BP systolic 128–185; BP diastolic 58–77
[2019-12-30] MEDS: HYDRALAZINE HCL 20 MG/ML VIAL IV PRN (05:06)
[2019-12-30 06:01] LABS: BASOPHILS # (AUTO) 0.1 (0.0-0.1); BASOPHILS % 0.9 % (0.0-1.0); EOSINOPHILS # (AUTO) 0.5 (0.0-0.4); EOSINOPHILS % 5.1 % (0.0-6.0); HEMATOCRIT 29.9 % (34.2-44.1); HEMOGLOBIN 9.3 g/dL (12.0-16.0); LYMPHOCYTES # (AUTO) 1.4 (1.0-3.2); LYMPHOCYTES % 16.5 % (18.0-39.1); MEAN CORPUSCULAR HEMOGLOBIN 29.3 pg (28-32); MEAN CORPUSCULAR HGB CONC 31.1 g/dL (31-35); MEAN CORPUSCULAR VOLUME 94.3 fL (81-99); MONOCYTES # (AUTO) 1.1 (0.2-0.8); MONOCYTES % 12.1 % (4.4-11.3); NEUTROPHILS # (AUTO) 5.6 (2.1-6.9); NEUTROPHILS % 64.6 % (38.7-80.0); PLATELET COUNT 310 x10e3/uL (140-360); RED BLOOD COUNT 3.17 x10e6/uL (3.6-5.1); RED CELL DISTRIBUTION WIDTH 21.2 % (11.7-14.4)
[2019-12-30 06:21] LABS: ANION GAP 13.6 mmol/L (8-16); BLOOD UREA NITROGEN 10 mg/dL (7-26); BUN/CREATININE RATIO 16 (6-25); CALCIUM 8.7 mg/dL (8.4-10.2); CARBON DIOXIDE 22 mmol/L (22-29); CHLORIDE 108 mmol/L (98-107); CREATININE, SERUM 0.64 mg/dL (0.57-1.11); EST GLOMERULAR FILTRATION RATE > 60 ML/MIN (60-); GLUCOSE 158 mg/dL (74-118); POTASSIUM 3.6 mmol/L (3.5-5.1); SODIUM 140 mmol/L (136-145)
--- NOTE | 2019-12-30 07:00 | NUR ---
RECEIVED PATIENT AWAKE RESTING IN BED. NO S/S OF DISTRESS. BED LOW, WHEELS LOCKED, SIDE RAILS X2. CALL LIGHT IN REACH WILL CONTINUE TO MONITOR PATIENT.
[2019-12-30] MEDS: INSULIN REGULAR, HUMAN 100 UNIT/1 ML 3ML VIAL SQ SCH ×4 (07:30→22:20)
[2019-12-30] MEDS ORDERED: ONDANSETRON HCL 4 MG ORAL DISINTEGRATING TAB PO PRN (08:15)
[2019-12-30] MEDS: AMLODIPINE BESYLATE 5 MG TAB PO SCH (08:40)
[2019-12-30] MEDS: NEBIVOLOL 10 MG TAB PO SCH (08:40)
[2019-12-30] MEDS: BALSAM PERU/CASTOR OIL 60 GM OINT...G. TP SCH ×2 (08:40→11:55)
[2019-12-30] MEDS ORDERED: LISINOPRIL 10 MG TAB PO SCH (09:00)
[2019-12-30] MEDS: PANTOPRAZOLE 40 MG 10ML VIAL IV SCH (10:57)
--- NOTE | 2019-12-30 11:42 | NUR ---
PT [facility], FILED IN CHART AND WILL COMPLETE PASRR RTF AND FAX CLINICALS TO FACILITY
--- NOTE | 2019-12-30 11:42 | Progress Note ---
DATE: 12/30/2019 Psychiatric Progress Note REASON FOR CONSULTATION: SUBJECTIVE: The patient evaluated and events noted. The patient is in the room. She is alert, awake, and oriented to situation. She is calm and cooperative. She is not confused. She reports doing well. Denies any depression or anxiety. Denies any hallucination. She reports eating well, but complaining of poor sleep. The patient's received trazodone p.r.n. the day before yesterday. She denies any side effects to medication. ASSESSMENT: 1. Adjustment disorder with mixed mood. 2. Unspecified psychosis. PLAN: 1. To continue Seroquel p.r.n. 2. Continue Haldol p.r.n. IM. 3. Continue trazodone 50 mg p.o. at bedtime p.o. p.r.n. Okay to give after dose schedule, trazodone is not effective. 4. Add trazodone 50 mg p.o. at bedtime schedule. 5. Monitor for mood. 6. Supportive therapy. Dictated by Clara Diamond PA-C MD CARIN EstradaV/JOANN /[id number]
--- NOTE | 2019-12-30 15:20 | NUR ---
EDUCATED ABOUT IMM, SIGNED, FILED IN CHART, WITH COPY LEFT WITH FAMILY AT BEDSIDE.
[2019-12-30] MEDS ORDERED: TRAZODONE HCL 50 MG TAB PO SCH (21:00)
[2019-12-31 00:49] VITALS: BP 178/72
[2019-12-31 04:00] VITALS: BP 184/71
[2019-12-31] MEDS ORDERED: LEVOTHYROXINE SODIUM 50 MCG TAB PO SCH (06:00)
--- NOTE | 2019-12-31 07:00 | NUR ---
RECEIVED PATIENT AWAKE RESTING IN BED NO S/S OF DISTRESS. BED LOW, WHEELS LOCKED, SIDE RAILS X2. CALL LIGHT IN REACH WILL CONTINUE TO MONITOR PATIENT.
[2019-12-31] MEDS: INSULIN REGULAR, HUMAN 100 UNIT/1 ML 3ML VIAL SQ SCH ×2 (07:30→11:30)
[2019-12-31] MEDS ORDERED: GLIMEPIRIDE 2 MG TAB PO SCH (07:30)
--- NOTE | 2019-12-31 07:56 | NUR ---
SPOKE WITH PT AND SHE ASKED ME TO CALL SHIVANI AT [phone] TO DISCUSS FACILITIES THAT DOCTOR GOES TO LISTED IN ORDER RECEIVED THIS MORNING, HE GOES TO [facility], [facility] AND [place]. SHIVANI STATES THAT HE WOULD PREFER HER TO GO TO [facility] THEY HAVE A LARGER PHYSICAL THERAPY DEPARTMENT AND THAT IS WHAT HE WANTS HER TO HAVE. INFORMED HIM OF THE ROOM AND LET HIM KNOW I WOULD FOLLOW HIS CHOICE AND PROCEED WITH [facility].
--- NOTE | 2019-12-31 07:59 | NUR ---
PENITENTIARY FACILITY DISCHARGE INFORMATION PATIENT HAS BEEN ACCEPTED TO: NAME: [facility] ADDRESS: [id number] [facility] [address] ACCEPTING MD: MARLEY ROOM:600 NURSE CALL REPORT TO: [phone] IMM SIGNED AND OBTAINED (if applicable): IMM THE FOLLOWING DOCUMENTS MUST ACCOMPANY PATIENT FOR TRANSFER: COPIED CHART: PACKET
[2019-12-31] MEDS ORDERED: METFORMIN HCL 500 MG TAB PO SCH (08:00)
[2019-12-31 08:05] VITALS: BP 165/71
[2019-12-31 08:32] VITALS: BP 165/71
[2019-12-31] MEDS ORDERED: LISINOPRIL 10 MG TAB PO SCH (09:00)
[2019-12-31] MEDS ORDERED: GLIMEPIRIDE 8 MG PO SCH (09:00)
[2019-12-31] MEDS ORDERED: ASPIRIN 81 MG ENTERIC COATED PO SCH (09:00)
[2019-12-31] MEDS ORDERED: UBIDECARENONE 400 MG PO SCH (09:00)
[2019-12-31] MEDS ORDERED: FESOTERODINE FUMARATE 4 MG PO SCH (09:00)
[2019-12-31] MEDS: AMLODIPINE BESYLATE 5 MG TAB PO SCH (09:09)
[2019-12-31] MEDS: BALSAM PERU/CASTOR OIL 60 GM OINT...G. TP SCH (09:09)
[2019-12-31] MEDS: NEBIVOLOL 10 MG TAB PO SCH (09:09)
[2019-12-31] MEDS: PANTOPRAZOLE 40 MG 10ML VIAL IV SCH (10:40)
--- NOTE | 2019-12-31 10:45 | NUR ---
VERBAL ORDER GIVEN FROM TENA HERNANDEZ TO SEND PATIENT TO SNF.
--- NOTE | 2019-12-31 10:54 | NUR ---
REPORT CALLED AND GIVEN TO DINESH MCCLELLAN AT [facility]. SUMMARY OF CARE GIVEN TO NURSE.
--- NOTE | 2019-12-31 11:30 | NUR ---
REMOVED PATIENTS PICC LINE. PICC LINE TIP INTACT ON REMOVAL AND PRESSURE DRESSING APPLIED.
[2019-12-31 12:06] VITALS: BP 157/66
--- NOTE | 2019-12-31 12:24 | NUR ---
PATIENT DISCHARGED FROM FACILITY TO [facility]. PATIENT LEFT UNIT IN STRETCHER WITH EMS IN STABLE CONDITION. PATIENT AND FAMILY MEMBER GATHERED ALL PERSONAL BELONGINGS. NO S/S OF DISTRESS WHEN LEAVING FACILITY.
--- NOTE | 2019-12-31 15:24 | Progress Note ---
DATE: 12/31/2019 SUBJECTIVE: The patient evaluated and events noted. The patient is in the room with the . She is sitting up, eating lunch. She is calm and cooperative. She reports doing well. Denies depression or anxiety. She complained of poor sleep. Claims she slept yesterday, but did not get sleep well. She denies any hallucination. She denies any suicidal ideation. She denies any side effects to medication. The patient has a plan to be discharged to [facility] today. ASSESSMENT: 1. Adjustment disorder with mixed mood. 2. Unspecified psychosis. PLAN: 1. Continue p.r.n. Seroquel. 2. Continue Haldol p.r.n. IM. 3. Discontinue trazodone schedule. 4. Continue trazodone 50 mg p.o. at bedtime p.r.n. 5. Add Remeron 15 mg p.o. at bedtime. 6. Monitor for mood. 7. Supportive therapy. Dictated by Clara Diamond PA-C Zee López MD QTV/MODL /[id number]
[2019-12-31] MEDS ORDERED: MIRTAZAPINE 15 MG TAB PO SCH (21:00)
== END 2019-12-31 12:25 | DRG 329 ==
LOC: OR 06:33 → PACU V 11:04 → ICU 12:45 → MED/SURG 12-27 18:07
PROVIDERS: ADMIT Surgery; ATTEND Surgery
PROC: 0DTG0ZZ Resection of Left Large Intestine, Open Approach (ICD-10-PCS; principal; 2019-12-23 07:30)
PROC: 0FT40ZZ Resection of Gallbladder, Open Approach (ICD-10-PCS; 2019-12-23 07:30)
DX: C18.4 Malignant neoplasm of transverse colon (principal); G93.41 Metabolic encephalopathy; K80.10 Calculus of gallbladder with chronic cholecystitis without obstruction; F23 Brief psychotic disorder; E66.01 Morbid (severe) obesity due to excess calories; D64.9 Anemia, unspecified; K21.9 Gastro-esophageal reflux disease without esophagitis; F43.23 Adjustment disorder with mixed anxiety and depressed mood; Z91.018 Allergy to other foods; Z88.5 Allergy status to narcotic agent; Z68.33 Body mass index [BMI] 33.0-33.9, adult; E87.6 Hypokalemia; Z79.82 Long term (current) use of aspirin; Z79.84 Long term (current) use of oral hypoglycemic drugs; K82.8 Other specified diseases of gallbladder; E11.22 Type 2 diabetes mellitus with diabetic chronic kidney disease; I12.9 Hypertensive chronic kidney disease with stage 1 through stage 4 chronic kidney disease, or unspecified chronic kidney disease; N18.3 Chronic kidney disease, stage 3 (moderate)
CPT/HCPCS: 36415; 36569; 74018; 74470; 80048; 80053; 82140; 82948; 83735; 83880; 84132; 85025; 88304; 88307; 88309; 88342; 97139; J0360; J0694; J1100; J1170; J1817; J2001; J2270; J2405; J2710; J3010; J7030

== ENCOUNTER → 2020-01-23 | Day surgery (SDC) | payer MEDICARE, BC ==
[~2020-01-23] MED LIST changes: +ACETAMINOPHEN 1000 MG/100 ML 100 ML IV ONE; +BUPIVACAINE 0.25% 30ML SDV INJ ONE; +CEFAZOLIN SOD 1 GM VIAL ONE; +EPHEDRINE SULFATE INJ 50 MG/ML VIAL ONE; +FENTANYL CITRATE/PF 100MCG/2 ML INJ ONE; +HEPARIN SOD (PORCINE) 5,000 UNIT/ML VIAL ONE; +INSULIN REGULAR, HUMAN 100 UNIT/1 ML 3ML VIAL ONE; +KETOROLAC TROMETHAMINE 30 MG/ML VIAL ONE; +LIDOCAINE HCL 1% LOCAL INJ 20 ML VIAL ONE; +LIDOCAINE HCL 2% LOCAL INJ 5 ML SDV VIAL INJ ONE; +ONDANSETRON HCL INJ 2MG/ML 2ML 2 MG/ML VIAL ONE; +PROPOFOL IV EMULSION 10 MG/ML 20 ML VIAL ONE; +SEVOFLURANE INHAL SOLN 250 ML PEN BTL ONE; +SODIUM CHLORIDE 0.9% 500ML 500 ML ONE
[2020-01-23 13:40] VITALS: BP 135/64
--- NOTE | 2020-01-23 18:26 | Operative Report ---
DATE OF PROCEDURE: 01/23/2020 SURGEON: Aleksey Liu MD PREOPERATIVE DIAGNOSIS: Colon cancer, needing IV access for chemotherapy. POSTOPERATIVE DIAGNOSIS: Colon cancer, needing IV access for chemotherapy. OPERATION PERFORMED: Placement of left subclavian venous access port under C-arm guidance. COOK CANDY: ELEUTERIO Mora. ANESTHESIA: General. COMPLICATIONS: None. ESTIMATED BLOOD LOSS: Minimal. DESCRIPTION OF PROCEDURE: With the patient lying in bed in the Trendelenburg position under good general anesthesia, the left chest and neck were prepped with Betadine solution and draped in the usual manner. A standard left subclavian venipuncture was performed without any difficulty and a guidewire was advanced into central venous position. The tip of the guidewire was then found to be at the level of the superior vena cava and the left lung was fully expanded. A pocket was then created in the left anterior chest to accept the reservoir. The catheter was then threaded to the subclavian position and cut to the appropriate length. The reservoir was anchored to the anterior chest wall with interrupted sutures of 2-0 silk. The reservoir and catheter were fully heparinized. The peel-away sheath introducer was then placed over the guidewire. The guidewire was removed and the catheter was threaded through the peel-away sheath introducer. The peel-away sheath was then removed. There was good blood return and the reservoir and catheter were fully heparinized. Using the C-arm, the tip of the catheter was confirmed to be at the level of the superior vena cava and the left lung was fully expanded. The wounds were then closed in layers and subcutaneous tissue was approximated with 3-0 and 4-0 Vicryl and the skin was closed with subcuticular 5-0 Vicryl. Benzoin, Steri-Strips and dressings were applied. The sponge, lap, and needle count was correct. The patient tolerated the procedure well and returned to the recovery room in stable condition. MD DONOVAN ReddyR/MODL /[id number]
== END | disposition home or self-care (01) ==
LOC: OR 06:51
PROVIDERS: ATTEND Surgery
DX: C18.9 Malignant neoplasm of colon, unspecified (principal); Z88.5 Allergy status to narcotic agent; Z91.018 Allergy to other foods; E03.9 Hypothyroidism, unspecified; E11.9 Type 2 diabetes mellitus without complications; K21.9 Gastro-esophageal reflux disease without esophagitis; I10 Essential (primary) hypertension; Z90.49 Acquired absence of other specified parts of digestive tract
CPT/HCPCS: 36415; 36561; 76000; 82948; C1751; J0131; J0690; J1644; J1885; J2001; J2405; J2704; J3010; J7040; J1817

== ENCOUNTER 2020-02-10 08:53 | Emergency (ER) | payer MEDICARE, BC ==
[~2020-02-10] VITALS: Ht 154.9 cm; Wt 79.4 kg
[~2020-02-10 08:53] MED LIST changes: -ACETAMINOPHEN 1000 MG/100 ML 100 ML IV ONE; -BUPIVACAINE 0.25% 30ML SDV INJ ONE; -CEFAZOLIN SOD 1 GM VIAL ONE; -EPHEDRINE SULFATE INJ 50 MG/ML VIAL ONE; -FENTANYL CITRATE/PF 100MCG/2 ML INJ ONE; -HEPARIN SOD (PORCINE) 5,000 UNIT/ML VIAL ONE; -INSULIN REGULAR, HUMAN 100 UNIT/1 ML 3ML VIAL ONE; -KETOROLAC TROMETHAMINE 30 MG/ML VIAL ONE; -LIDOCAINE HCL 1% LOCAL INJ 20 ML VIAL ONE; -LIDOCAINE HCL 2% LOCAL INJ 5 ML SDV VIAL INJ ONE; -ONDANSETRON HCL INJ 2MG/ML 2ML 2 MG/ML VIAL ONE; -PROPOFOL IV EMULSION 10 MG/ML 20 ML VIAL ONE; -SEVOFLURANE INHAL SOLN 250 ML PEN BTL ONE; -SODIUM CHLORIDE 0.9% 500ML 500 ML ONE
--- NOTE | 2020-02-10 09:45 | NUR ---
incontinence care provided for patient
--- NOTE | 2020-02-10 10:13 | NUR ---
abdominal wound cleaned with Betadine per MD request.
[2020-02-10 11:13] VITALS: BP 143/59
== END 2020-02-10 13:35 ==
LOC: ER 08:53
DX: Z48.01 Encounter for change or removal of surgical wound dressing (principal); I10 Essential (primary) hypertension; E11.9 Type 2 diabetes mellitus without complications; E03.9 Hypothyroidism, unspecified; D64.9 Anemia, unspecified; K21.9 Gastro-esophageal reflux disease without esophagitis; Z96.661 Presence of right artificial ankle joint
CPT/HCPCS: 99284